=== PATIENT | male | born 1930 | race African-American/Black ===

== ENCOUNTER 2019-09-28 14:45 | Emergency (ER) | payer MEDICARE, OTHER ==
[~2019-09-28] VITALS: Ht 177.8 cm; Wt 82.0 kg
[2019-09-28 17:33] LABS: BASOPHILS % 0.5 % (0.0-2.0); EOSINOPHILS % 0.5 % (0.0-5.0); HEMATOCRIT. 35.8 % (42.0-52.0); HEMOGLOBIN. 11.6 g/dL (14.0-18.0); LYMPHOCYTES % 17.5 % (20.0-50.0); MEAN CORPUSCULAR HEMOGLOBIN 29.9 pg (28.0-32.0); MEAN CORPUSCULAR VOLUME 92.7 fL (80.0-94.0); MEAN PLATELET VOLUME 10.3 fl (7.4-10.4); MONOCYTES % 10.7 % (2.0-8.0); NEUTROPHILS % 70.8 % (40.0-76.0); PLATELET 193 x1000/uL (130-400); RED BLOOD CELL COUNT 3.86 mill/uL (4.7-6.1); RED CELL DISTRIBUTION WIDTH 15.4 % (11.6-14.6)
[2019-09-28 17:37] LABS: PROTHROMBIN TIME 10.4 sec (9.6-11.0)
[2019-09-28 17:38] LABS: CHLORIDE 109 mEq/L (98-107)
[2019-09-28 17:42] LABS: ETHANOL BLOOD < 10 mg/dL
[2019-09-28 18:27] VITALS: BP 200/99
[2019-09-28] MEDS ORDERED: MORPHINE SULFATE 2 MG/ML CPJ (NOT FOR IM USE) IV PRN (18:45)
[2019-09-28] MEDS ORDERED: NICARDIPINE 100 MG in SODIUM CHLORIDE 0.9% 60 ML IV PRN (18:45)
[2019-09-28] MEDS ORDERED: DEXT 5%/LACTATED RINGERS 1,000 ML IV SCH (18:45)
[2019-09-28] MEDS ORDERED: LEVETIRACETAM 500MG PREMIX 100 ML IV ONE (19:30)
[2019-09-28 19:52] LABS: CLARITY URINE CLEAR (CLEAR); COLOR URINE YELLOW (YELLOW); KETONES URINE NEGATIVE (NEGATIVE); LEUKOCYTE ESTERASE URINE NEGATIVE (NEGATIVE); NITRITE URINE NEGATIVE (NEGATIVE); OCCULT BLOOD URINE NEGATIVE (NEGATIVE); PH URINE 7.5 (4.5-8.0); PROTEIN URINE NEGATIVE (NEGATIVE); UROBILINOGEN URINE 0.2 E.U./dL (0.2-1.0)
[2019-09-28] MEDS ORDERED: TRANEXAMIC ACID 1,000 MG/10 ML IV ONE (20:00)
[2019-09-28] MEDS ORDERED: TRANEXAMIC ACID 1,000 MG in SODIUM CHLORIDE 0.9% 100 ML IV ONE (20:00)
[2019-09-28 20:25] LABS: METHADONE URINE SCREEN NEGATIVE (NEGATIVE)
[2019-09-28 20:26] LABS: *AMPHETAMINES SCREEN URINE NEGATIVE (NEGATIVE); *BARBITURATES SCREEN URINE NEGATIVE (NEGATIVE); *BENZODIAZEPINES SCREEN URINE NEGATIVE (NEGATIVE); *COCAINE SCREEN URINE NEGATIVE (NEGATIVE); OPIATES URINE SCREEN NEGATIVE (NEGATIVE); PHENCYCLIDINE URINE SCREEN NEGATIVE (NEGATIVE)
[2019-09-28 20:29] LABS: CANNABINOID URINE SCREEN NEGATIVE (NEGATIVE)
[2019-09-29] MEDS ORDERED: LEVETIRACETAM 500MG PREMIX 100 ML IV SCH (09:00)
== END 2019-09-28 20:50 | disposition short-term general hospital (02) ==
LOC: ER 14:45
DX: S82.841A Displaced bimalleolar fracture of right lower leg, initial encounter for closed fracture (principal); I62.00 Nontraumatic subdural hemorrhage, unspecified; V49.49XA Driver injured in collision with other motor vehicles in traffic accident, initial encounter; Y93.89 Activity, other specified; Y92.89 Other specified places as the place of occurrence of the external cause; Y99.8 Other external cause status; E11.9 Type 2 diabetes mellitus without complications; I10 Essential (primary) hypertension
CPT/HCPCS: 36415; 70450; 71045; 72192; 73560; 73610; 80053; 80305; 80320; 81003; 83690; 84484; 85025; 85610; 93005; 96365; 96367; 96375; 99285; J1953; J7050; Z7610; G0480

== ENCOUNTER 2020-05-20 19:57 | Inpatient (IN) | payer MEDICARE, MEDICAID ==
[~2020-05-20] VITALS: Ht 182 cm; Wt 84.9 kg
[2020-05-20] MEDS ORDERED: SODIUM CHLORIDE 0.9% 1,000 ML IV ONE (21:01)
[2020-05-20] MEDS ORDERED: TETANUS, DIPHTHERIA, PERTUSSIS VAC/PF 0.5ML (>7YR OLD) IM ONE (21:15)
[2020-05-20] MEDS ORDERED: ACETAMINOPHEN 325MG TABLET PO ONE (21:15)
[2020-05-20] MEDS ORDERED: LEVETIRACETAM 500MG PREMIX 100 ML IV ONE (22:00)
[2020-05-20 22:05] LABS: BASOPHILS % 0.1 % (0.0-2.0); EOSINOPHILS % 0.3 % (0.0-5.0); HEMATOCRIT. 34.1 % (42.0-52.0); HEMOGLOBIN. 11.2 g/dL (14.0-18.0); LYMPHOCYTES % 12.1 % (20.0-50.0); MEAN CORPUSCULAR HEMOGLOBIN 29.8 pg (28.0-32.0); MEAN PLATELET VOLUME 10.1 fl (7.4-10.4); MONOCYTES % 11.5 % (2.0-8.0); PLATELET 109 x1000/uL (130-400); RED BLOOD CELL COUNT 3.75 mill/uL (4.7-6.1); RED CELL DISTRIBUTION WIDTH 14.8 % (11.6-14.6)
[2020-05-20 22:14] LABS: CHLORIDE 112 mEq/L (98-107)
[2020-05-20 22:15] LABS: PROTHROMBIN TIME 10.9 sec (9.6-11.0)
[2020-05-20] MEDS ORDERED: NICARDIPINE 50 MG in SODIUM CHLORIDE 0.9% 230 ML IV STA (22:18)
[2020-05-20 22:21] LABS: ETHANOL BLOOD < 10 mg/dL
[2020-05-20] MEDS ORDERED: NICARDIPINE 100 MG in SODIUM CHLORIDE 0.9% 60 ML IV PRN (22:30)
[2020-05-20] MEDS ORDERED: LIDOCAINE 1%/EPI 1:100,000 10 ML VIAL IJ ONE (23:00)
[2020-05-20] MEDS ORDERED: BACITRACIN ZINC OINT UDPKT TOP ONE (23:00)
[2020-05-20] MEDS: DEXT 5%/LACTATED RINGERS 1,000 ML IV SCH (23:08)
[2020-05-21] VITALS (81 sets, daily range): BP systolic 39–157; BP diastolic 24–109
[2020-05-21] MEDS ORDERED: DOCUSATE SODIUM 100MG CAPSULE PO PRN (03:15)
[2020-05-21] MEDS: DEXT 5%/LACTATED RINGERS 1,000 ML IV SCH ×2 (03:48→03:49)
[2020-05-21] MEDS ORDERED: MVI, ADULT NO.1 10 ML, FOLIC ACID 1 MG, THIAMINE HCL 100 MG in SODIUM CHLORIDE 0.9% 1,0... IV SCH ×4 (04:00)
[2020-05-21 05:44] LABS: BASOPHILS % 0.1 % (0.0-2.0); EOSINOPHILS % 1.3 % (0.0-5.0); HEMATOCRIT. 31.8 % (42.0-52.0); HEMOGLOBIN. 10.5 g/dL (14.0-18.0); LYMPHOCYTES % 18.5 % (20.0-50.0); MEAN CORPUSCULAR VOLUME 91.3 fL (80.0-94.0); MEAN PLATELET VOLUME 9.5 fl (7.4-10.4); NEUTROPHILS % 67.1 % (40.0-76.0); PLATELET 104 x1000/uL (130-400); RED BLOOD CELL COUNT 3.48 mill/uL (4.7-6.1); RED CELL DISTRIBUTION WIDTH 14.7 % (11.6-14.6)
[2020-05-21 06:15] LABS: CHLORIDE 114 mEq/L (98-107)
[2020-05-21] MEDS ORDERED: LEVETIRACETAM 500MG PREMIX 100 ML IV SCH (09:00)
[2020-05-21] MEDS: FAMOTIDINE 20MG/2ML VIAL IV SCH (09:14)
[2020-05-21] MEDS: LEVETIRACETAM 500MG PREMIX 100 ML IV SCH ×2 (11:01→20:36)
[2020-05-21] MEDS ORDERED: BISACODYL 10MG SUPP PR PRN (13:15)
[2020-05-21] MEDS ORDERED: DEXTROSE 50% WATER 50ML SYRINGE IV PRN (13:15)
[2020-05-21] MEDS ORDERED: IPRATROPIUM/ALBUTEROL 0.5-3(2.5)MG/3ML NEB HHN PRN (13:15)
[2020-05-21] MEDS: AMLODIPINE 5MG TABLET PO SCH (14:33)
[2020-05-21 15:40] LABS: CLARITY URINE CLEAR (CLEAR); COLOR URINE YELLOW (YELLOW); KETONES URINE TRACE (NEGATIVE); LEUKOCYTE ESTERASE URINE NEGATIVE (NEGATIVE); NITRITE URINE NEGATIVE (NEGATIVE); OCCULT BLOOD URINE NEGATIVE (NEGATIVE); PH URINE 5.5 (4.5-8.0); PROTEIN URINE NEGATIVE (NEGATIVE); SPECIFIC GRAVITY URINE 1.019 (1.005-1.030); UROBILINOGEN URINE 0.2 E.U./dL (0.2-1.0)
[2020-05-21 15:57] LABS: *AMPHETAMINES SCREEN URINE NEGATIVE (NEGATIVE); *BARBITURATES SCREEN URINE NEGATIVE (NEGATIVE)
[2020-05-21 15:58] LABS: *BENZODIAZEPINES SCREEN URINE NEGATIVE (NEGATIVE); *COCAINE SCREEN URINE NEGATIVE (NEGATIVE); CANNABINOID URINE SCREEN NEGATIVE (NEGATIVE); METHADONE URINE SCREEN NEGATIVE (NEGATIVE); OPIATES URINE SCREEN NEGATIVE (NEGATIVE); PHENCYCLIDINE URINE SCREEN NEGATIVE (NEGATIVE)
[2020-05-21] MEDS: BLOOD SUGAR DIAGNOSTIC STRIP TEST SCH ×2 (16:30→20:38)
[2020-05-21] MEDS: INSULIN LISPRO 100 UNITS/ML SUBCUT SCH ×2 (18:38→20:38)
[2020-05-21] MEDS: MORPHINE SULFATE 2 MG/ML CPJ (NOT FOR IM USE) IV PRN (23:44)
[2020-05-22] VITALS (96 sets, daily range): BP systolic 95–162; BP diastolic 31–101
[2020-05-22] MEDS: NICARDIPINE 100 MG in SODIUM CHLORIDE 0.9% 60 ML IV PRN ×2 (01:09→20:06)
[2020-05-22] MEDS: BLOOD SUGAR DIAGNOSTIC STRIP TEST SCH ×4 (06:02→20:31)
[2020-05-22] MEDS: MORPHINE SULFATE 2 MG/ML CPJ (NOT FOR IM USE) IV PRN (06:06)
[2020-05-22] MEDS: INSULIN LISPRO 100 UNITS/ML SUBCUT SCH ×4 (06:07→20:31)
[2020-05-22] MEDS ORDERED: LORAZEPAM 2MG/ML CPJ IV PRN (06:30)
[2020-05-22 06:33] LABS: T4 FREE 1.13 ng/dL (0.76-1.46)
[2020-05-22] MEDS: DEXT 5%/LACTATED RINGERS 1,000 ML IV SCH (07:58)
[2020-05-22] MEDS: FAMOTIDINE 20MG/2ML VIAL IV SCH (08:28)
[2020-05-22] MEDS: AMLODIPINE 5MG TABLET PO SCH (08:29)
[2020-05-22] MEDS: LEVETIRACETAM 500MG PREMIX 100 ML IV SCH ×2 (08:29→22:15)
[2020-05-22] MEDS ORDERED: GADOBENATE DIMEGLUMINE 529 MG/ML 10ML IV ONE (09:50)
[2020-05-22 12:22] LABS: BASOPHILS % 0.3 % (0.0-2.0); EOSINOPHILS % 0.2 % (0.0-5.0); HEMATOCRIT. 32.3 % (42.0-52.0); HEMOGLOBIN. 10.4 g/dL (14.0-18.0); LYMPHOCYTES % 8.5 % (20.0-50.0); MEAN CORPUSCULAR HEMOGLOBIN 29.8 pg (28.0-32.0); MEAN CORPUSCULAR VOLUME 92.2 fL (80.0-94.0); MEAN PLATELET VOLUME 9.6 fl (7.4-10.4); MONOCYTES % 7.4 % (2.0-8.0); NEUTROPHILS % 83.6 % (40.0-76.0); PLATELET 76 x1000/uL (130-400); RED CELL DISTRIBUTION WIDTH 14.9 % (11.6-14.6)
[2020-05-22 12:28] LABS: CHLORIDE 116 mEq/L (98-107)
[2020-05-22] MEDS ORDERED: LIDOCAINE HCL 1% 20ML VIAL (Pyxis) INJ ONE (13:17)
[2020-05-22] MEDS ORDERED: IOHEXOL-300 100 ML BOTTLE ONE (13:17)
[2020-05-22] MEDS ORDERED: SODIUM BICARBONATE 4% (2.4MEQ) 5ML VIAL IV ONE (13:17)
[2020-05-22] MEDS ORDERED: CEFAZOLIN 1000MG PREMIX 50 ML IV SCH (14:00)
[2020-05-22] MEDS ORDERED: CEFAZOLIN 1000MG PREMIX 50 ML IV ONE (14:10)
[2020-05-23] VITALS (96 sets, daily range): BP systolic 94–149; BP diastolic 28–88
[2020-05-23] MEDS: DEXT 5%/LACTATED RINGERS 1,000 ML IV SCH ×2 (00:09→17:04)
[2020-05-23 05:43] LABS: BASOPHILS % 0.2 % (0.0-2.0); EOSINOPHILS % 0.7 % (0.0-5.0); HEMATOCRIT. 32.2 % (42.0-52.0); HEMOGLOBIN. 10.7 g/dL (14.0-18.0); LYMPHOCYTES % 15.5 % (20.0-50.0); MEAN CORPUSCULAR VOLUME 89.9 fL (80.0-94.0); MEAN PLATELET VOLUME 9.5 fl (7.4-10.4); MONOCYTES % 10.6 % (2.0-8.0); PLATELET 109 x1000/uL (130-400); RED BLOOD CELL COUNT 3.58 mill/uL (4.7-6.1); RED CELL DISTRIBUTION WIDTH 14.7 % (11.6-14.6)
[2020-05-23 05:47] LABS: CHLORIDE 116 mEq/L (98-107)
[2020-05-23] MEDS: BLOOD SUGAR DIAGNOSTIC STRIP TEST SCH ×4 (06:20→21:00)
[2020-05-23] MEDS: INSULIN LISPRO 100 UNITS/ML SUBCUT SCH ×4 (06:20→21:00)
[2020-05-23] MEDS ORDERED: BACITRACIN 15GM TUBE TOP ONE (06:23)
[2020-05-23] MEDS ORDERED: BACITRACIN 50,000 UNITS/VIAL ONE (06:24)
[2020-05-23] MEDS ORDERED: THROMBIN (BOVINE) 5000 UNITS/VIAL TOP ONE (06:24)
[2020-05-23] MEDS ORDERED: FENTANYL CITRATE/PF 50MCG/ML 2ML VIAL ONE (07:02)
[2020-05-23] MEDS ORDERED: PROPOFOL 200MG/20ML VIAL IV ONE (07:02)
[2020-05-23] MEDS ORDERED: ROCURONIUM BROMIDE 10MG/ML VIAL 5ML IV ONE (07:02)
[2020-05-23] MEDS ORDERED: PHENYLEPHRINE HCL 10 MG/ML 1ML (IV VIAL) IV ONE (07:05)
[2020-05-23] MEDS ORDERED: CEFAZOLIN SODIUM 1000MG/VIAL ONE (07:05)
[2020-05-23] MEDS ORDERED: LABETALOL HCL 5MG/ML VIAL 20ML IV ONE (07:05)
[2020-05-23] MEDS ORDERED: SODIUM CHLORIDE 0.9% 10ML VIAL ONE ×2 (07:06→07:11)
[2020-05-23] MEDS ORDERED: DEXAMETHASONE 4MG/ML 1ML VIAL ONE (07:06)
[2020-05-23] MEDS ORDERED: ACETAMINOPHEN 500MG TABLET ONE (07:11)
[2020-05-23] MEDS ORDERED: PROPOFOL 10MG/ML 100ML 0 ML IV ONE (07:13)
[2020-05-23] MEDS ORDERED: ONDANSETRON HCL 4MG/2ML INJ ONE (07:19)
[2020-05-23] MEDS ORDERED: STERILE WATER FOR INJECTION 10ML VIAL ONE (07:21)
[2020-05-23] MEDS ORDERED: LIDOCAINE HCL/PF 1% 10 MG/ML 5ML VIAL ONE (07:32)
[2020-05-23] MEDS ORDERED: PHENYLEPHRINE 50 MG in DEXT 5% WATER 245 ML IV SCH (08:00)
[2020-05-23] MEDS ORDERED: MANNITOL 20% 0 ML IV ONE (08:10)
[2020-05-23] MEDS ORDERED: NEOSTIGMINE METHYLSULFATE 1MG/ML 10 ML VIAL ONE (08:50)
[2020-05-23] MEDS ORDERED: GLYCOPYRROLATE 0.2 MG/ML 2ML VIAL ONE (08:50)
[2020-05-23 08:51] LABS: BG BASE EXCESS -3.7 mmol/L (-2.0-2.0); BG CARBOXYHEMOGLOBIN 0.2 % (0.5-1.5); BG DEOXYHEMOGLOBIN 0.9 % (0.0-5.0); BG FRACTION INSPIRED OXYGEN 100%; BG HCO3 ACT 19.9 mmol/L (22.0-26.0); BG METHEMOGLOBIN 0.5 % (0.0-1.5); BG OXYGEN SATURATION 99.1 % (92.0-98.5); BG OXYHEMOGLOBIN 98.4 % (94.0-97.0); BG PCO2 30.6 mmHg (35.0-45.0); BG PO2 332.7 mmHg (75.0-100.0); BG SAMPLE SITE RIGHT RADIAL; BG TOTAL HEMOGLOBIN 9.7 g/dL (12.0-18.0); BG VENT MODE VENT - AC
[2020-05-23] MEDS: FAMOTIDINE 20MG/2ML VIAL IV SCH (11:05)
[2020-05-23] MEDS: AMLODIPINE 5MG TABLET PO SCH (11:05)
[2020-05-23] MEDS: LEVETIRACETAM 500MG PREMIX 100 ML IV SCH ×2 (11:05→21:17)
[2020-05-23] MEDS: MORPHINE SULFATE 2 MG/ML CPJ (NOT FOR IM USE) IV PRN ×4 (11:59→22:05)
[2020-05-23] MEDS: CEFAZOLIN 1000MG PREMIX 50 ML IV SCH ×2 (13:10→22:33)
[2020-05-23] MEDS ORDERED: CEFAZOLIN SODIUM 1000MG/VIAL IV SCH (14:00)
[2020-05-23] MEDS: NICARDIPINE 100 MG in SODIUM CHLORIDE 0.9% 60 ML IV PRN (17:53)
[2020-05-23] MEDS: ONDANSETRON HCL 4MG/2ML INJ IV PRN (20:09)
[2020-05-24] VITALS (93 sets, daily range): BP systolic 91–142; BP diastolic 33–95
[2020-05-24] MEDS: MORPHINE SULFATE 2 MG/ML CPJ (NOT FOR IM USE) IV PRN ×3 (00:10→09:44)
[2020-05-24] MEDS: NICARDIPINE 100 MG in SODIUM CHLORIDE 0.9% 60 ML IV PRN ×3 (00:54→19:23)
[2020-05-24] MEDS: CEFAZOLIN 1000MG PREMIX 50 ML IV SCH ×2 (05:10→15:12)
[2020-05-24] MEDS ORDERED: MORPHINE SULFATE 2 MG/ML CPJ (NOT FOR IM USE) IV NR (05:45)
[2020-05-24] MEDS: BLOOD SUGAR DIAGNOSTIC STRIP TEST SCH ×4 (06:35→21:30)
[2020-05-24] MEDS: INSULIN LISPRO 100 UNITS/ML SUBCUT SCH ×4 (06:40→21:31)
[2020-05-24] MEDS: AMLODIPINE 5MG TABLET PO SCH (08:44)
[2020-05-24] MEDS: FAMOTIDINE 20MG/2ML VIAL IV SCH (08:44)
[2020-05-24] MEDS: LEVETIRACETAM 500MG PREMIX 100 ML IV SCH ×2 (08:44→21:30)
[2020-05-24 10:03] LABS: HEMATOCRIT. 29.9 % (42.0-52.0); HEMOGLOBIN. 9.7 g/dL (14.0-18.0); MEAN CORPUSCULAR HEMOGLOBIN 29.6 pg (28.0-32.0); MEAN PLATELET VOLUME 9.7 fl (7.4-10.4); PLATELET 114 x1000/uL (130-400); RED BLOOD CELL COUNT 3.28 mill/uL (4.7-6.1); RED CELL DISTRIBUTION WIDTH 14.9 % (11.6-14.6)
[2020-05-24 10:42] LABS: PLATELET ESTIMATE DECREASED
[2020-05-24] MEDS: DEXT 5%/LACTATED RINGERS 1,000 ML IV SCH (10:52)
[2020-05-25] VITALS (95 sets, daily range): BP systolic 83–166; BP diastolic 32–111
[2020-05-25] MEDS: MORPHINE SULFATE 2 MG/ML CPJ (NOT FOR IM USE) IV PRN ×6 (00:49→13:35)
[2020-05-25] MEDS: DEXT 5%/LACTATED RINGERS 1,000 ML IV SCH ×2 (03:02→20:29)
[2020-05-25] MEDS: NICARDIPINE 100 MG in SODIUM CHLORIDE 0.9% 60 ML IV PRN ×2 (04:23→11:53)
[2020-05-25] MEDS ORDERED: MORPHINE SULFATE 2 MG/ML CPJ (NOT FOR IM USE) IV NR (05:00)
[2020-05-25] MEDS: BLOOD SUGAR DIAGNOSTIC STRIP TEST SCH ×4 (06:44→20:37)
[2020-05-25] MEDS: INSULIN LISPRO 100 UNITS/ML SUBCUT SCH ×4 (06:44→20:37)
[2020-05-25] MEDS ORDERED: MORPHINE SULFATE 2 MG/ML CPJ (NOT FOR IM USE) IV SCH (07:00)
[2020-05-25] MEDS: FAMOTIDINE 20MG/2ML VIAL IV SCH (08:32)
[2020-05-25] MEDS: LEVETIRACETAM 500MG PREMIX 100 ML IV SCH ×2 (08:32→20:30)
[2020-05-25 08:59] LABS: HEMATOCRIT. 27.9 % (42.0-52.0); HEMOGLOBIN. 9.2 g/dL (14.0-18.0); MEAN CORPUSCULAR HEMOGLOBIN 30.2 pg (28.0-32.0); MEAN CORPUSCULAR VOLUME 91.3 fL (80.0-94.0); MEAN PLATELET VOLUME 9.7 fl (7.4-10.4); PLATELET 112 x1000/uL (130-400); RED BLOOD CELL COUNT 3.05 mill/uL (4.7-6.1); RED CELL DISTRIBUTION WIDTH 15.3 % (11.6-14.6)
[2020-05-25] MEDS ORDERED: MORPHINE SULFATE 2 MG/ML CPJ (NOT FOR IM USE) IV ONE (09:00)
[2020-05-25] MEDS: AMLODIPINE 5MG TABLET PO SCH (09:00)
[2020-05-25 10:03] LABS: PLATELET ESTIMATE DECREASED
[2020-05-26] VITALS (87 sets, daily range): BP systolic 94–161; BP diastolic 47–93
[2020-05-26] MEDS: MORPHINE SULFATE 4 MG/ML CPJ (NOT FOR IM USE) IV PRN ×7 (01:19→20:47)
[2020-05-26] MEDS: BLOOD SUGAR DIAGNOSTIC STRIP TEST SCH ×4 (06:30→21:00)
[2020-05-26] MEDS: INSULIN LISPRO 100 UNITS/ML SUBCUT SCH ×4 (06:52→21:00)
[2020-05-26] MEDS: FAMOTIDINE 20MG/2ML VIAL IV SCH (08:26)
[2020-05-26] MEDS: LEVETIRACETAM 500MG PREMIX 100 ML IV SCH ×2 (08:26→20:48)
[2020-05-26] MEDS: AMLODIPINE 5MG TABLET PO SCH (09:00)
[2020-05-26] MEDS: NICARDIPINE 100 MG in SODIUM CHLORIDE 0.9% 60 ML IV PRN (11:42)
[2020-05-26 14:31] LABS: BG BASE EXCESS -2.8 mmol/L (-2.0-2.0); BG CARBOXYHEMOGLOBIN 0.1 % (0.5-1.5); BG DEOXYHEMOGLOBIN 7.7 % (0.0-5.0); BG FRACTION INSPIRED OXYGEN 36; BG HCO3 ACT 22.5 mmol/L (22.0-26.0); BG METHEMOGLOBIN 0.3 % (0.0-1.5); BG OXYGEN SATURATION 92.3 % (92.0-98.5); BG OXYHEMOGLOBIN 91.9 % (94.0-97.0); BG PCO2 41.1 mmHg (35.0-45.0); BG PH 7.357 (7.350-7.450); BG PO2 63.7 mmHg (75.0-100.0); BG SAMPLE SITE RIGHT RADIAL; BG TOTAL HEMOGLOBIN 10.1 g/dL (12.0-18.0); BG VENT MODE NASAL CANNULA
[2020-05-26] MEDS: DEXT 5%/LACTATED RINGERS 1,000 ML IV SCH (15:36)
[2020-05-26] MEDS: NITROGLYCERIN OINT 1GM/INCH UDPKT TD SCH ×2 (15:38→23:31)
[2020-05-26] MEDS ORDERED: LORAZEPAM 2MG/ML CPJ IV PRN (20:00)
[2020-05-26] MEDS: THIAMINE HCL 100MG TABLET PO SCH (20:00)
[2020-05-26] MEDS: FOLIC ACID 1MG TABLET PO SCH (20:00)
[2020-05-27] VITALS (82 sets, daily range): BP systolic 98–153; BP diastolic 54–100
[2020-05-27] MEDS: MORPHINE SULFATE 4 MG/ML CPJ (NOT FOR IM USE) IV PRN ×2 (03:37→06:26)
[2020-05-27 05:46] LABS: BASOPHILS % 0.2 % (0.0-2.0); EOSINOPHILS % 1.3 % (0.0-5.0); HEMATOCRIT. 27.1 % (42.0-52.0); LYMPHOCYTES % 8.7 % (20.0-50.0); MEAN CORPUSCULAR HEMOGLOBIN 30.3 pg (28.0-32.0); MEAN CORPUSCULAR VOLUME 91.6 fL (80.0-94.0); MEAN PLATELET VOLUME 9.6 fl (7.4-10.4); MONOCYTES % 13.3 % (2.0-8.0); NEUTROPHILS % 76.5 % (40.0-76.0); PLATELET 96 x1000/uL (130-400); RED BLOOD CELL COUNT 2.96 mill/uL (4.7-6.1); RED CELL DISTRIBUTION WIDTH 15.2 % (11.6-14.6)
[2020-05-27 05:53] LABS: CHLORIDE 119 mEq/L (98-107)
[2020-05-27] MEDS: BLOOD SUGAR DIAGNOSTIC STRIP TEST SCH ×4 (06:27→20:51)
[2020-05-27] MEDS: INSULIN LISPRO 100 UNITS/ML SUBCUT SCH ×4 (06:27→20:51)
[2020-05-27] MEDS: NITROGLYCERIN OINT 1GM/INCH UDPKT TD SCH ×3 (06:27→21:38)
[2020-05-27] MEDS: THIAMINE HCL 100MG TABLET PO SCH (08:23)
[2020-05-27] MEDS: FAMOTIDINE 20MG/2ML VIAL IV SCH (08:23)
[2020-05-27] MEDS: HYDRALAZINE HCL 25MG TABLET PO PRN (08:24)
[2020-05-27] MEDS: AMLODIPINE 5MG TABLET PO SCH (08:24)
[2020-05-27] MEDS: FOLIC ACID 1MG TABLET PO SCH (08:24)
[2020-05-27] MEDS: DEXT 5%/LACTATED RINGERS 1,000 ML IV SCH (08:25)
[2020-05-27] MEDS: LEVETIRACETAM 500MG PREMIX 100 ML IV SCH ×2 (08:25→20:31)
[2020-05-27] MEDS: NITROPRUSSIDE 50 MG in SODIUM CHLORIDE 0.9% 248 ML IV PRN (14:11)
[2020-05-27] MEDS ORDERED: CARV3.1242 MT (15:08)
[2020-05-27] MEDS ORDERED: FURO-152 MT (15:09)
[2020-05-27] MEDS ORDERED: GLIM1TAB MT (15:11)
[2020-05-27] MEDS ORDERED: AMLO-78 MT (15:13)
[2020-05-27] MEDS ORDERED: QUET25TA MT (15:15)
[2020-05-27] MEDS: ACETAMINOPHEN 325MG TABLET PO PRN (20:17)
[2020-05-28] VITALS (98 sets, daily range): BP systolic 104–169; BP diastolic 23–125
[2020-05-28] MEDS: DEXT 5%/LACTATED RINGERS 1,000 ML IV SCH ×2 (01:35→15:03)
[2020-05-28] MEDS: MORPHINE SULFATE 4 MG/ML CPJ (NOT FOR IM USE) IV PRN ×4 (02:26→16:22)
[2020-05-28] MEDS: NITROPRUSSIDE 50 MG in SODIUM CHLORIDE 0.9% 248 ML IV PRN ×4 (02:34→21:29)
[2020-05-28] MEDS: NITROGLYCERIN OINT 1GM/INCH UDPKT TD SCH ×4 (05:46→21:54)
[2020-05-28] MEDS: BLOOD SUGAR DIAGNOSTIC STRIP TEST SCH ×4 (05:47→20:31)
[2020-05-28] MEDS: INSULIN LISPRO 100 UNITS/ML SUBCUT SCH ×4 (07:00→20:39)
[2020-05-28 09:21] LABS: BASOPHILS % 0.2 % (0.0-2.0); EOSINOPHILS % 0.4 % (0.0-5.0); HEMATOCRIT. 27.9 % (42.0-52.0); LYMPHOCYTES % 10.3 % (20.0-50.0); MEAN CORPUSCULAR VOLUME 92.6 fL (80.0-94.0); MEAN PLATELET VOLUME 9.1 fl (7.4-10.4); MONOCYTES % 14.8 % (2.0-8.0); NEUTROPHILS % 74.3 % (40.0-76.0); PLATELET 105 x1000/uL (130-400); RED BLOOD CELL COUNT 3.01 mill/uL (4.7-6.1); RED CELL DISTRIBUTION WIDTH 15.4 % (11.6-14.6)
[2020-05-28 09:27] LABS: CHLORIDE 119 mEq/L (98-107)
[2020-05-28] MEDS: FAMOTIDINE 20MG/2ML VIAL IV SCH (09:34)
[2020-05-28] MEDS: THIAMINE HCL 100MG TABLET PO SCH (09:36)
[2020-05-28] MEDS: AMLODIPINE 5MG TABLET PO SCH (09:36)
[2020-05-28] MEDS: FOLIC ACID 1MG TABLET PO SCH (09:36)
[2020-05-28] MEDS: HYDRALAZINE HCL 25MG TABLET PO PRN ×2 (09:36→18:06)
[2020-05-28] MEDS: LEVETIRACETAM 500MG PREMIX 100 ML IV SCH ×2 (09:39→20:22)
[2020-05-28] MEDS: LABETALOL 5MG/ML SYR 20 MG/4 ML SYRINGE IV PRN ×3 (10:56→18:05)
[2020-05-28] MEDS: HALOPERIDOL LACTATE 5MG/ML VIAL IM PRN (12:44)
[2020-05-28] MEDS ORDERED: LIDOCAINE HCL 2% JELLY 5ML TOP NR (17:15)
[2020-05-28] MEDS: ENALAPRIL 1.25MG/ML VIAL 1ML IV PRN (18:05)
[2020-05-28] MEDS: HYDRALAZINE HCL 25MG TABLET PO SCH (20:54)
[2020-05-28] MEDS: DOCUSATE SODIUM SUGAR FREE 100MG/10ML UDC NG SCH (20:55)
[2020-05-28] MEDS: RISPERIDONE 1MG TABLET PO SCH (21:31)
[2020-05-29] VITALS (96 sets, daily range): BP systolic 101–167; BP diastolic 42–120
[2020-05-29] MEDS: MORPHINE SULFATE 4 MG/ML CPJ (NOT FOR IM USE) IV PRN (00:03)
[2020-05-29] MEDS: NITROPRUSSIDE 50 MG in SODIUM CHLORIDE 0.9% 248 ML IV PRN ×3 (01:42→09:23)
[2020-05-29] MEDS: HYDRALAZINE HCL 25MG TABLET PO SCH ×3 (02:49→14:29)
[2020-05-29 05:41] LABS: EOSINOPHILS % 0.4 % (0.0-5.0); HEMATOCRIT. 24.7 % (42.0-52.0); HEMOGLOBIN. 8.2 g/dL (14.0-18.0); LYMPHOCYTES % 8.4 % (20.0-50.0); MEAN CORPUSCULAR HEMOGLOBIN 30.2 pg (28.0-32.0); MEAN CORPUSCULAR VOLUME 91.4 fL (80.0-94.0); MONOCYTES % 12.7 % (2.0-8.0); NEUTROPHILS % 78.5 % (40.0-76.0); PLATELET 103 x1000/uL (130-400); RED CELL DISTRIBUTION WIDTH 15.2 % (11.6-14.6)
[2020-05-29 05:42] LABS: CHLORIDE 118 mEq/L (98-107)
[2020-05-29] MEDS: BLOOD SUGAR DIAGNOSTIC STRIP TEST SCH ×4 (05:51→21:29)
[2020-05-29] MEDS: INSULIN LISPRO 100 UNITS/ML SUBCUT SCH ×4 (05:56→21:31)
[2020-05-29] MEDS: NITROGLYCERIN OINT 1GM/INCH UDPKT TD SCH ×3 (05:57→16:57)
[2020-05-29] MEDS: LEVETIRACETAM 500MG PREMIX 100 ML IV SCH ×2 (09:18→21:11)
[2020-05-29] MEDS: DEXT 5%/LACTATED RINGERS 1,000 ML IV SCH (09:19)
[2020-05-29] MEDS: FOLIC ACID 1MG TABLET PO SCH (09:20)
[2020-05-29] MEDS: DOCUSATE SODIUM SUGAR FREE 100MG/10ML UDC NG SCH ×2 (09:20→16:57)
[2020-05-29] MEDS: FAMOTIDINE 20MG/2ML VIAL IV SCH (09:20)
[2020-05-29] MEDS: ENALAPRIL 1.25MG/ML VIAL 1ML IV PRN ×3 (09:20→16:58)
[2020-05-29] MEDS: HYDRALAZINE HCL 25MG TABLET PO PRN ×2 (09:21→14:30)
[2020-05-29] MEDS: RISPERIDONE 1MG TABLET PO SCH ×2 (09:21→21:11)
[2020-05-29] MEDS: THIAMINE HCL 100MG TABLET PO SCH (09:22)
[2020-05-29] MEDS: AMLODIPINE 5MG TABLET PO SCH ×2 (09:22→16:58)
[2020-05-29] MEDS: HALOPERIDOL LACTATE 5MG/ML VIAL IM PRN (09:26)
[2020-05-29] MEDS: LABETALOL 5MG/ML SYR 20 MG/4 ML SYRINGE IV PRN (12:30)
[2020-05-29] MEDS ORDERED: HYDROCODONE/ACETAMINOPHEN 5/325MG TABLET PO PRN (16:00)
[2020-05-29] MEDS ORDERED: MORPHINE SULFATE 4 MG/ML CPJ (NOT FOR IM USE) IV PRN (17:15)
[2020-05-29] MEDS: HYDRALAZINE HCL 50MG TABLET PO SCH (17:20)
[2020-05-29] MEDS ORDERED: HYDRALAZINE HCL 25MG TABLET PO PRN (21:15)
[2020-05-30] VITALS (34 sets, daily range): BP systolic 106–148; BP diastolic 52–77
[2020-05-30] MEDS: HYDRALAZINE HCL 50MG TABLET PO SCH ×2 (00:30→05:50)
[2020-05-30] MEDS: NITROGLYCERIN OINT 1GM/INCH UDPKT TD SCH ×5 (00:30→21:26)
[2020-05-30] MEDS: LABETALOL 5MG/ML SYR 20 MG/4 ML SYRINGE IV PRN (01:48)
[2020-05-30] MEDS: NITROPRUSSIDE 50 MG in SODIUM CHLORIDE 0.9% 248 ML IV PRN (03:41)
[2020-05-30] MEDS: DEXT 5%/LACTATED RINGERS 1,000 ML IV SCH (03:43)
[2020-05-30 05:28] LABS: BASOPHILS % 0.1 % (0.0-2.0); EOSINOPHILS % 1.1 % (0.0-5.0); HEMATOCRIT. 25.3 % (42.0-52.0); HEMOGLOBIN. 8.4 g/dL (14.0-18.0); LYMPHOCYTES % 9.2 % (20.0-50.0); MEAN CORPUSCULAR HEMOGLOBIN 30.1 pg (28.0-32.0); MEAN CORPUSCULAR VOLUME 90.9 fL (80.0-94.0); MEAN PLATELET VOLUME 9.4 fl (7.4-10.4); MONOCYTES % 13.8 % (2.0-8.0); NEUTROPHILS % 75.8 % (40.0-76.0); PLATELET 106 x1000/uL (130-400); RED BLOOD CELL COUNT 2.78 mill/uL (4.7-6.1); RED CELL DISTRIBUTION WIDTH 15.4 % (11.6-14.6)
[2020-05-30] MEDS: INSULIN LISPRO 100 UNITS/ML SUBCUT SCH ×4 (06:23→21:29)
[2020-05-30] MEDS: BLOOD SUGAR DIAGNOSTIC STRIP TEST SCH ×4 (06:23→20:19)
[2020-05-30] MEDS: LEVETIRACETAM 500MG PREMIX 100 ML IV SCH ×2 (09:00→20:07)
[2020-05-30] MEDS ORDERED: METOPROLOL TARTRATE 50MG TABLET PO NR (10:45)
[2020-05-30] MEDS: DOCUSATE SODIUM SUGAR FREE 100MG/10ML UDC NG SCH ×2 (11:19→19:08)
[2020-05-30] MEDS: FOLIC ACID 1MG TABLET PO SCH (11:27)
[2020-05-30] MEDS: ENALAPRIL 1.25MG/ML VIAL 1ML IV PRN (11:27)
[2020-05-30] MEDS: FAMOTIDINE 20MG/2ML VIAL IV SCH (11:29)
[2020-05-30] MEDS: HALOPERIDOL LACTATE 5MG/ML VIAL IM PRN (11:29)
[2020-05-30] MEDS: AMLODIPINE 5MG TABLET PO SCH ×2 (11:30→19:02)
[2020-05-30] MEDS: THIAMINE HCL 100MG TABLET PO SCH (11:32)
[2020-05-30] MEDS: RISPERIDONE 1MG TABLET PO SCH ×2 (11:32→20:07)
[2020-05-30] MEDS: HYDRALAZINE HCL 100MG TABLET PO SCH ×2 (12:00→19:02)
[2020-05-30] MEDS: METOPROLOL TARTRATE 50MG TABLET PO SCH (20:08)
[2020-05-31] VITALS (48 sets, daily range): BP systolic 87–169; BP diastolic 41–90
[2020-05-31] MEDS: HYDRALAZINE HCL 100MG TABLET PO SCH ×4 (00:12→18:00)
[2020-05-31] MEDS: NITROGLYCERIN OINT 1GM/INCH UDPKT TD SCH ×4 (03:49→21:43)
[2020-05-31] MEDS: BLOOD SUGAR DIAGNOSTIC STRIP TEST SCH ×4 (05:34→21:33)
[2020-05-31 06:00] LABS: HEMATOCRIT 26.3 % (42.0-52.0); HEMOGLOBIN 8.8 g/dL (14.0-18.0); MEAN CORPUSCULAR HEMOGLOBIN 30.3 pg (28.0-32.0); RED BLOOD CELL COUNT 2.89 mill/uL (4.7-6.1); RED CELL DISTRIBUTION WIDTH 15.3 % (11.6-14.6)
[2020-05-31 06:06] LABS: CHLORIDE 118 mEq/L (98-107)
[2020-05-31] MEDS: INSULIN LISPRO 100 UNITS/ML SUBCUT SCH ×4 (06:07→21:33)
[2020-05-31 10:48] LABS: PLATELET 105 x1000/uL (130-400)
[2020-05-31] MEDS: LEVETIRACETAM 500MG PREMIX 100 ML IV SCH ×2 (11:01→21:00)
[2020-05-31] MEDS: ACETAMINOPHEN 325MG TABLET PO PRN (11:02)
[2020-05-31] MEDS: AMLODIPINE 5MG TABLET PO SCH ×2 (11:09→17:00)
[2020-05-31] MEDS: FOLIC ACID 1MG TABLET PO SCH (11:09)
[2020-05-31] MEDS: CLONIDINE 0.1MG TABLET PO PRN (11:10)
[2020-05-31] MEDS: RISPERIDONE 1MG TABLET PO SCH (11:11)
[2020-05-31] MEDS: METOPROLOL TARTRATE 50MG TABLET PO SCH ×2 (11:11→21:12)
[2020-05-31] MEDS: FAMOTIDINE 20MG/2ML VIAL IV SCH (11:12)
[2020-05-31] MEDS: THIAMINE HCL 100MG TABLET PO SCH (11:12)
[2020-05-31] MEDS: DOCUSATE SODIUM SUGAR FREE 100MG/10ML UDC NG SCH (11:12)
[2020-05-31] MEDS: ENALAPRIL 1.25MG/ML VIAL 1ML IV PRN (11:12)
[2020-05-31] MEDS: HALOPERIDOL LACTATE 5MG/ML VIAL IM PRN (11:13)
[2020-05-31] MEDS: OLANZAPINE 5MG TABLET PO SCH (15:00)
[2020-06-01] VITALS (48 sets, daily range): BP systolic 99–164; BP diastolic 39–113
[2020-06-01] MEDS: HYDRALAZINE HCL 100MG TABLET PO SCH ×4 (00:05→19:03)
[2020-06-01] MEDS: NITROGLYCERIN OINT 1GM/INCH UDPKT TD SCH ×4 (04:04→21:22)
[2020-06-01] MEDS: ACETAMINOPHEN 325MG TABLET PO PRN ×3 (04:51→19:04)
[2020-06-01 05:12] LABS: HEMATOCRIT 29.9 % (42.0-52.0); HEMOGLOBIN 9.9 g/dL (14.0-18.0); MEAN CORPUSCULAR VOLUME 90.7 fL (80.0-94.0); PLATELET 62 x1000/uL (130-400); RED CELL DISTRIBUTION WIDTH 15.4 % (11.6-14.6)
[2020-06-01 05:18] LABS: CHLORIDE 117 mEq/L (98-107)
[2020-06-01] MEDS: BLOOD SUGAR DIAGNOSTIC STRIP TEST SCH ×4 (06:39→21:22)
[2020-06-01] MEDS: INSULIN LISPRO 100 UNITS/ML SUBCUT SCH ×4 (06:42→21:25)
[2020-06-01] MEDS: LEVETIRACETAM 500MG PREMIX 100 ML IV SCH ×2 (14:21→21:21)
[2020-06-01] MEDS: THIAMINE HCL 100MG TABLET PO SCH (14:46)
[2020-06-01] MEDS: FOLIC ACID 1MG TABLET PO SCH (14:47)
[2020-06-01] MEDS: OLANZAPINE 5MG TABLET PO SCH (14:47)
[2020-06-01] MEDS: METOPROLOL TARTRATE 50MG TABLET PO SCH ×2 (14:48→21:21)
[2020-06-01] MEDS: AMLODIPINE 5MG TABLET PO SCH ×2 (14:48→19:05)
[2020-06-01] MEDS: ENALAPRIL 1.25MG/ML VIAL 1ML IV PRN (14:49)
[2020-06-01] MEDS: FAMOTIDINE 20MG/2ML VIAL IV SCH (14:50)
[2020-06-01] MEDS: HALOPERIDOL LACTATE 5MG/ML VIAL IM PRN (14:50)
[2020-06-01 15:33] LABS: BG BASE EXCESS 0.4 mmol/L (-2.0-2.0); BG CARBOXYHEMOGLOBIN 0.3 % (0.5-1.5); BG DEOXYHEMOGLOBIN 5.8 % (0.0-5.0); BG FRACTION INSPIRED OXYGEN 21; BG HCO3 ACT 23.2 mmol/L (22.0-26.0); BG METHEMOGLOBIN 0.4 % (0.0-1.5); BG OXYGEN SATURATION 94.2 % (92.0-98.5); BG OXYHEMOGLOBIN 93.5 % (94.0-97.0); BG PCO2 31.4 mmHg (35.0-45.0); BG PH 7.487 (7.350-7.450); BG PO2 65.2 mmHg (75.0-100.0); BG SAMPLE SITE LEFT RADIAL; BG TOTAL HEMOGLOBIN 10.6 g/dL (12.0-18.0); BG VENT MODE ROOM AIR
[2020-06-02] VITALS (45 sets, daily range): BP systolic 103–154; BP diastolic 43–121
[2020-06-02] MEDS: ACETAMINOPHEN 325MG TABLET PO PRN ×2 (00:02→04:41)
[2020-06-02] MEDS: HYDRALAZINE HCL 100MG TABLET PO SCH ×4 (00:02→19:53)
[2020-06-02] MEDS: NITROGLYCERIN OINT 1GM/INCH UDPKT TD SCH ×4 (04:40→21:53)
[2020-06-02] MEDS: BLOOD SUGAR DIAGNOSTIC STRIP TEST SCH ×4 (06:12→20:29)
[2020-06-02] MEDS: INSULIN LISPRO 100 UNITS/ML SUBCUT SCH ×4 (06:13→20:32)
[2020-06-02] MEDS: ENALAPRIL 1.25MG/ML VIAL 1ML IV PRN (06:38)
[2020-06-02] MEDS: OLANZAPINE 5MG TABLET PO SCH (08:25)
[2020-06-02] MEDS: THIAMINE HCL 100MG TABLET PO SCH (08:25)
[2020-06-02] MEDS: FAMOTIDINE 20MG/2ML VIAL IV SCH (08:25)
[2020-06-02] MEDS: METOPROLOL TARTRATE 50MG TABLET PO SCH ×2 (08:26→20:25)
[2020-06-02] MEDS: FOLIC ACID 1MG TABLET PO SCH (08:26)
[2020-06-02] MEDS: AMLODIPINE 5MG TABLET PO SCH ×2 (08:26→16:47)
[2020-06-02] MEDS: LEVETIRACETAM 500MG PREMIX 100 ML IV SCH ×2 (08:27→20:15)
[2020-06-02] MEDS: PIPERACILLIN/TAZOBACTAM 3.375 G in DEXT 5% WATER 100 ML IV SCH ×2 (14:28→17:00)
[2020-06-02] MEDS: LABETALOL 5MG/ML SYR 20 MG/4 ML SYRINGE IV PRN (16:58)
[2020-06-03] VITALS (10 sets, daily range): BP systolic 115–159; BP diastolic 51–74
[2020-06-03] MEDS: PIPERACILLIN/TAZOBACTAM 3.375 G in DEXT 5% WATER 100 ML IV SCH ×4 (00:24→18:23)
[2020-06-03] MEDS: IPRATROPIUM/ALBUTEROL 0.5-3(2.5)MG/3ML NEB HHN SCH ×4 (02:00→20:10)
[2020-06-03] MEDS: HYDRALAZINE HCL 100MG TABLET PO SCH ×3 (04:28→21:01)
[2020-06-03] MEDS: NITROGLYCERIN OINT 1GM/INCH UDPKT TD SCH ×3 (04:28→17:28)
[2020-06-03 06:04] LABS: HEMATOCRIT 26.5 % (42.0-52.0); HEMOGLOBIN 8.7 g/dL (14.0-18.0); MEAN CORPUSCULAR HEMOGLOBIN 29.9 pg (28.0-32.0); MEAN CORPUSCULAR VOLUME 91.5 fL (80.0-94.0); PLATELET 127 x1000/uL (130-400); RED CELL DISTRIBUTION WIDTH 15.7 % (11.6-14.6)
[2020-06-03 06:10] LABS: CHLORIDE 115 mEq/L (98-107)
[2020-06-03] MEDS: BLOOD SUGAR DIAGNOSTIC STRIP TEST SCH ×4 (07:48→21:02)
[2020-06-03] MEDS: THIAMINE HCL 100MG TABLET PO SCH (08:39)
[2020-06-03] MEDS: FOLIC ACID 1MG TABLET PO SCH (08:39)
[2020-06-03] MEDS: OLANZAPINE 5MG TABLET PO SCH (08:39)
[2020-06-03] MEDS: AMLODIPINE 5MG TABLET PO SCH ×2 (08:39→17:28)
[2020-06-03] MEDS: METOPROLOL TARTRATE 50MG TABLET PO SCH ×2 (08:39→21:02)
[2020-06-03] MEDS: FAMOTIDINE 20MG/2ML VIAL IV SCH (08:40)
[2020-06-03] MEDS: INSULIN LISPRO 100 UNITS/ML SUBCUT SCH ×4 (08:41→20:59)
[2020-06-03] MEDS: LEVETIRACETAM 500MG PREMIX 100 ML IV SCH ×2 (09:36→20:58)
[2020-06-04] VITALS (12 sets, daily range): BP systolic 119–144; BP diastolic 42–99
[2020-06-04] MEDS: PIPERACILLIN/TAZOBACTAM 3.375 G in DEXT 5% WATER 100 ML IV SCH ×4 (00:04→17:47)
[2020-06-04] MEDS: NITROGLYCERIN OINT 1GM/INCH UDPKT TD SCH ×5 (00:04→21:05)
[2020-06-04] MEDS: IPRATROPIUM/ALBUTEROL 0.5-3(2.5)MG/3ML NEB HHN SCH ×4 (01:30→21:30)
[2020-06-04] MEDS: ACETAMINOPHEN 325MG TABLET PO PRN (04:19)
[2020-06-04] MEDS: HYDRALAZINE HCL 100MG TABLET PO SCH ×3 (04:19→20:40)
[2020-06-04] MEDS: BLOOD SUGAR DIAGNOSTIC STRIP TEST SCH ×4 (05:57→20:40)
[2020-06-04 06:57] LABS: PROTHROMBIN TIME 10.5 sec (9.6-11.0)
[2020-06-04] MEDS: INSULIN LISPRO 100 UNITS/ML SUBCUT SCH ×4 (06:59→21:04)
[2020-06-04 07:04] LABS: HEMATOCRIT 24.7 % (42.0-52.0); HEMOGLOBIN 8.1 g/dL (14.0-18.0); MEAN CORPUSCULAR HEMOGLOBIN 30.2 pg (28.0-32.0); MEAN CORPUSCULAR VOLUME 92.3 fL (80.0-94.0); PLATELET 149 x1000/uL (130-400); RED BLOOD CELL COUNT 2.68 mill/uL (4.7-6.1); RED CELL DISTRIBUTION WIDTH 15.8 % (11.6-14.6)
[2020-06-04] MEDS: THIAMINE HCL 100MG TABLET PO SCH (08:25)
[2020-06-04] MEDS: OLANZAPINE 5MG TABLET PO SCH (08:25)
[2020-06-04] MEDS: METOPROLOL TARTRATE 50MG TABLET PO SCH ×2 (08:25→20:40)
[2020-06-04] MEDS: AMLODIPINE 5MG TABLET PO SCH ×2 (08:26→17:49)
[2020-06-04] MEDS: FOLIC ACID 1MG TABLET PO SCH (08:26)
[2020-06-04] MEDS: FAMOTIDINE 20MG/2ML VIAL IV SCH (08:26)
[2020-06-04] MEDS: LEVETIRACETAM 500MG PREMIX 100 ML IV SCH ×2 (08:26→20:39)
[2020-06-04 11:31] LABS: TOTAL IRON BINDING CAPACITY 123 ug/dL (250-450)
[2020-06-04] MEDS: PANTOPRAZOLE SODIUM 40 MG/VIAL IV SCH (20:39)
[2020-06-05] VITALS (11 sets, daily range): BP systolic 107–155; BP diastolic 54–89
[2020-06-05] MEDS: SODIUM CHLORIDE 0.45% 1,000 ML IV SCH ×2 (00:13→20:04)
[2020-06-05] MEDS: PIPERACILLIN/TAZOBACTAM 3.375 G in DEXT 5% WATER 100 ML IV SCH ×4 (00:13→17:09)
[2020-06-05] MEDS: ENALAPRIL 1.25MG/ML VIAL 1ML IV PRN (02:24)
[2020-06-05] MEDS: IPRATROPIUM/ALBUTEROL 0.5-3(2.5)MG/3ML NEB HHN SCH ×4 (02:48→19:53)
[2020-06-05] MEDS: HYDRALAZINE HCL 100MG TABLET PO SCH ×3 (04:00→20:04)
[2020-06-05] MEDS: NITROGLYCERIN OINT 1GM/INCH UDPKT TD SCH ×4 (05:27→22:40)
[2020-06-05] MEDS: BLOOD SUGAR DIAGNOSTIC STRIP TEST SCH ×4 (06:17→20:55)
[2020-06-05 06:36] LABS: CHLORIDE 113 mEq/L (98-107)
[2020-06-05] MEDS: FOLIC ACID 1MG TABLET PO SCH (07:37)
[2020-06-05] MEDS: AMLODIPINE 5MG TABLET PO SCH ×2 (07:37→17:09)
[2020-06-05] MEDS: THIAMINE HCL 100MG TABLET PO SCH (07:37)
[2020-06-05] MEDS: METOPROLOL TARTRATE 50MG TABLET PO SCH ×2 (07:37→20:55)
[2020-06-05] MEDS: OLANZAPINE 5MG TABLET PO SCH (07:38)
[2020-06-05 08:28] LABS: BASOPHILS % 0.8 % (0.0-2.0); EOSINOPHILS % 0.6 % (0.0-5.0); HEMATOCRIT. 26.5 % (42.0-52.0); HEMOGLOBIN. 8.6 g/dL (14.0-18.0); LYMPHOCYTES % 7.5 % (20.0-50.0); MEAN CORPUSCULAR HEMOGLOBIN 29.8 pg (28.0-32.0); MEAN CORPUSCULAR VOLUME 91.9 fL (80.0-94.0); MEAN PLATELET VOLUME 10.6 fl (7.4-10.4); MONOCYTES % 9.6 % (2.0-8.0); NEUTROPHILS % 81.5 % (40.0-76.0); PLATELET 110 x1000/uL (130-400); RED BLOOD CELL COUNT 2.88 mill/uL (4.7-6.1); RED CELL DISTRIBUTION WIDTH 15.4 % (11.6-14.6)
[2020-06-05] MEDS: PANTOPRAZOLE SODIUM 40 MG/VIAL IV SCH ×2 (08:48→20:55)
[2020-06-05] MEDS: INSULIN LISPRO 100 UNITS/ML SUBCUT SCH ×4 (08:48→20:56)
[2020-06-05] MEDS: LEVETIRACETAM 500MG PREMIX 100 ML IV SCH ×2 (08:49→20:55)
[2020-06-05 09:42] LABS: PARTIAL THROMBOPLASTIN TIME 29.6 sec (23.4-31.0); PROTHROMBIN TIME 10.5 sec (9.6-11.0)
[2020-06-05] MEDS: HALOPERIDOL LACTATE 5MG/ML VIAL IM PRN (10:11)
[2020-06-05] MEDS ORDERED: FENTANYL CITRATE/PF 50MCG/ML 2ML VIAL IV PRN (12:28)
[2020-06-05] MEDS ORDERED: MIDAZOLAM HCL 5 MG/5 ML VIAL IV PRN (12:28)
[2020-06-05] MEDS ORDERED: FENTANYL CITRATE/PF 50MCG/ML 2ML VIAL ONE (12:28)
[2020-06-05] MEDS ORDERED: MIDAZOLAM HCL 5 MG/5 ML VIAL ONE (12:28)
[2020-06-05] MEDS ORDERED: DIAZEPAM 5 MG/ML 2ML CPJ IV PRN (13:33)
[2020-06-05] MEDS ORDERED: DIAZEPAM 5 MG/ML 2ML CPJ ONE (13:33)
[2020-06-06] VITALS (12 sets, daily range): BP systolic 106–151; BP diastolic 52–109
[2020-06-06] MEDS: PIPERACILLIN/TAZOBACTAM 3.375 G in DEXT 5% WATER 100 ML IV SCH ×5 (00:01→23:19)
[2020-06-06] MEDS: IPRATROPIUM/ALBUTEROL 0.5-3(2.5)MG/3ML NEB HHN SCH ×4 (02:36→21:07)
[2020-06-06] MEDS: HYDRALAZINE HCL 100MG TABLET PO SCH ×3 (04:10→20:43)
[2020-06-06] MEDS: NITROGLYCERIN OINT 1GM/INCH UDPKT TD SCH ×4 (04:10→21:05)
[2020-06-06] MEDS: METOCLOPRAMIDE HCL 10MG/2ML VIAL IV SCH ×4 (05:54→23:19)
[2020-06-06] MEDS: BLOOD SUGAR DIAGNOSTIC STRIP TEST SCH ×5 (05:55→21:11)
[2020-06-06 06:58] LABS: BASOPHILS % 0.3 % (0.0-2.0); EOSINOPHILS % 0.8 % (0.0-5.0); HEMATOCRIT. 23.1 % (42.0-52.0); HEMOGLOBIN. 7.7 g/dL (14.0-18.0); MEAN CORPUSCULAR HEMOGLOBIN 30.5 pg (28.0-32.0); MEAN CORPUSCULAR VOLUME 91.1 fL (80.0-94.0); MEAN PLATELET VOLUME 9.8 fl (7.4-10.4); MONOCYTES % 10.8 % (2.0-8.0); NEUTROPHILS % 80.1 % (40.0-76.0); PLATELET 139 x1000/uL (130-400); RED BLOOD CELL COUNT 2.54 mill/uL (4.7-6.1)
[2020-06-06] MEDS: INSULIN LISPRO 100 UNITS/ML SUBCUT SCH ×4 (07:20→21:26)
[2020-06-06] MEDS: METOPROLOL TARTRATE 50MG TABLET PO SCH ×2 (09:07→20:44)
[2020-06-06] MEDS: OLANZAPINE 5MG TABLET PO SCH (09:08)
[2020-06-06] MEDS: AMLODIPINE 5MG TABLET PO SCH ×2 (09:08→17:09)
[2020-06-06] MEDS: THIAMINE HCL 100MG TABLET PO SCH (09:08)
[2020-06-06] MEDS: FOLIC ACID 1MG TABLET PO SCH (09:08)
[2020-06-06] MEDS: LEVETIRACETAM 500MG PREMIX 100 ML IV SCH ×2 (09:09→21:23)
[2020-06-06] MEDS: PANTOPRAZOLE SODIUM 40 MG/VIAL IV SCH ×2 (09:09→20:43)
[2020-06-06] MEDS: HALOPERIDOL LACTATE 5MG/ML VIAL IM PRN ×2 (10:56→23:21)
[2020-06-06] MEDS: SODIUM CHLORIDE 0.45% 1,000 ML IV SCH (17:09)
[2020-06-06] MEDS: ACETAMINOPHEN 325MG TABLET PO PRN (20:44)
[2020-06-07] VITALS (12 sets, daily range): BP systolic 108–189; BP diastolic 55–146
[2020-06-07] MEDS: IPRATROPIUM/ALBUTEROL 0.5-3(2.5)MG/3ML NEB HHN SCH ×4 (02:39→21:08)
[2020-06-07] MEDS: NITROGLYCERIN OINT 1GM/INCH UDPKT TD SCH ×4 (05:21→22:53)
[2020-06-07] MEDS: CLONIDINE 0.1MG TABLET PO PRN (05:21)
[2020-06-07] MEDS: PIPERACILLIN/TAZOBACTAM 3.375 G in DEXT 5% WATER 100 ML IV SCH ×2 (05:22→12:40)
[2020-06-07] MEDS: HYDRALAZINE HCL 100MG TABLET PO SCH ×3 (05:22→20:00)
[2020-06-07] MEDS: METOCLOPRAMIDE HCL 10MG/2ML VIAL IV SCH ×3 (05:22→18:25)
[2020-06-07] MEDS: INSULIN LISPRO 100 UNITS/ML SUBCUT SCH ×4 (06:33→20:32)
[2020-06-07] MEDS: BLOOD SUGAR DIAGNOSTIC STRIP TEST SCH ×4 (06:34→20:20)
[2020-06-07] MEDS: LEVETIRACETAM 500MG PREMIX 100 ML IV SCH (09:04)
[2020-06-07] MEDS: PANTOPRAZOLE SODIUM 40 MG/VIAL IV SCH ×2 (09:04→20:18)
[2020-06-07] MEDS: METOPROLOL TARTRATE 50MG TABLET PO SCH ×2 (09:05→20:19)
[2020-06-07] MEDS: FOLIC ACID 1MG TABLET PO SCH (09:05)
[2020-06-07] MEDS: THIAMINE HCL 100MG TABLET PO SCH (09:05)
[2020-06-07] MEDS: OLANZAPINE 5MG TABLET PO SCH (09:05)
[2020-06-07] MEDS: AMLODIPINE 5MG TABLET PO SCH ×2 (09:05→17:11)
[2020-06-07] MEDS: SODIUM CHLORIDE 0.45% 1,000 ML IV SCH (12:40)
[2020-06-07] MEDS: LEVETIRACETAM 500MG/5ML CUP PEG SCH (20:19)
[2020-06-08] VITALS (12 sets, daily range): BP systolic 104–174; BP diastolic 53–85
[2020-06-08] MEDS: METOCLOPRAMIDE HCL 10MG/2ML VIAL IV SCH
[2020-06-08] MEDS: IPRATROPIUM/ALBUTEROL 0.5-3(2.5)MG/3ML NEB HHN SCH ×4 (01:36→21:04)
[2020-06-08] MEDS: HYDRALAZINE HCL 100MG TABLET PO SCH ×3 (04:38→21:11)
[2020-06-08] MEDS: NITROGLYCERIN OINT 1GM/INCH UDPKT TD SCH ×4 (04:39→21:12)
[2020-06-08] MEDS: BLOOD SUGAR DIAGNOSTIC STRIP TEST SCH ×4 (06:50→21:12)
[2020-06-08 08:27] LABS: BG BASE EXCESS -2.3 mmol/L (-2.0-2.0); BG CARBOXYHEMOGLOBIN 0.3 % (0.5-1.5); BG DEOXYHEMOGLOBIN 24.9 % (0.0-5.0); BG HCO3 ACT 21.8 mmol/L (22.0-26.0); BG OXYHEMOGLOBIN 74.8 % (94.0-97.0); BG PCO2 34.1 mmHg (35.0-45.0); BG PH 7.423 (7.350-7.450); BG PO2 41.2 mmHg (75.0-100.0); BG SAMPLE SITE LEFT RADIAL; BG TOTAL HEMOGLOBIN 7.9 g/dL (12.0-18.0); BG VENT MODE NASAL CANNULA
[2020-06-08] MEDS: LEVETIRACETAM 500MG/5ML CUP PEG SCH ×2 (09:50→21:10)
[2020-06-08] MEDS: PANTOPRAZOLE SODIUM 40 MG/VIAL IV SCH ×2 (09:50→21:10)
[2020-06-08] MEDS: SODIUM CHLORIDE 0.45% 1,000 ML IV SCH ×2 (09:50→14:56)
[2020-06-08] MEDS: FOLIC ACID 1MG TABLET PO SCH (09:51)
[2020-06-08] MEDS: THIAMINE HCL 100MG TABLET PO SCH (09:51)
[2020-06-08] MEDS: METOPROLOL TARTRATE 50MG TABLET PO SCH ×2 (09:51→21:11)
[2020-06-08] MEDS: OLANZAPINE 5MG TABLET PO SCH (09:51)
[2020-06-08] MEDS: AMLODIPINE 5MG TABLET PO SCH ×2 (09:51→17:19)
[2020-06-08] MEDS: INSULIN LISPRO 100 UNITS/ML SUBCUT SCH ×4 (09:52→21:12)
[2020-06-08 10:12] LABS: BASOPHILS % 0.2 % (0.0-2.0); EOSINOPHILS % 0.7 % (0.0-5.0); HEMATOCRIT. 22.3 % (42.0-52.0); HEMOGLOBIN. 7.3 g/dL (14.0-18.0); LYMPHOCYTES % 8.7 % (20.0-50.0); MEAN CORPUSCULAR HEMOGLOBIN 30.3 pg (28.0-32.0); MEAN PLATELET VOLUME 9.4 fl (7.4-10.4); MONOCYTES % 8.5 % (2.0-8.0); NEUTROPHILS % 81.9 % (40.0-76.0); PLATELET 156 x1000/uL (130-400); RED BLOOD CELL COUNT 2.42 mill/uL (4.7-6.1); RED CELL DISTRIBUTION WIDTH 15.5 % (11.6-14.6)
[2020-06-08 10:43] LABS: CHLORIDE 111 mEq/L (98-107)
[2020-06-08] MEDS ORDERED: FUROSEMIDE 40MG/4ML VIAL IVP SCH (14:15)
[2020-06-08 14:23] LABS: BG BASE EXCESS -2.3 mmol/L (-2.0-2.0); BG DEOXYHEMOGLOBIN 0.8 % (0.0-5.0); BG FRACTION INSPIRED OXYGEN 99.8; BG HCO3 ACT 22.6 mmol/L (22.0-26.0); BG METHEMOGLOBIN 0.1 % (0.0-1.5); BG OXYGEN SATURATION 99.2 % (92.0-98.5); BG OXYHEMOGLOBIN 99.1 % (94.0-97.0); BG PH 7.381 (7.350-7.450); BG PO2 229.2 mmHg (75.0-100.0); BG SAMPLE SITE LEFT RADIAL; BG TOTAL HEMOGLOBIN 8.7 g/dL (12.0-18.0); BG VENT MODE MASK - NRB
[2020-06-08] MEDS ORDERED: FUROSEMIDE 40MG/4ML VIAL ONE (14:25)
[2020-06-09] VITALS (12 sets, daily range): BP systolic 129–152; BP diastolic 61–92
[2020-06-09] MEDS: IPRATROPIUM/ALBUTEROL 0.5-3(2.5)MG/3ML NEB HHN SCH ×4 (01:00→20:57)
[2020-06-09] MEDS: HALOPERIDOL LACTATE 5MG/ML VIAL IM PRN ×2 (03:44→11:44)
[2020-06-09 04:55] LABS: BG BASE EXCESS -2.8 mmol/L (-2.0-2.0); BG CARBOXYHEMOGLOBIN 0.3 % (0.5-1.5); BG DEOXYHEMOGLOBIN 11.3 % (0.0-5.0); BG FRACTION INSPIRED OXYGEN 40; BG HCO3 ACT 20.8 mmol/L (22.0-26.0); BG METHEMOGLOBIN 0.3 % (0.0-1.5); BG OXYGEN SATURATION 88.6 % (92.0-98.5); BG OXYHEMOGLOBIN 88.1 % (94.0-97.0); BG PCO2 31.3 mmHg (35.0-45.0); BG PO2 54.7 mmHg (75.0-100.0); BG TOTAL HEMOGLOBIN 9.4 g/dL (12.0-18.0); BG VENT MODE NASAL CANNULA
[2020-06-09] MEDS: NITROGLYCERIN OINT 1GM/INCH UDPKT TD SCH ×4 (04:55→23:13)
[2020-06-09] MEDS: HYDRALAZINE HCL 100MG TABLET PO SCH ×3 (04:55→21:06)
[2020-06-09] MEDS: BLOOD SUGAR DIAGNOSTIC STRIP TEST SCH ×4 (06:08→21:07)
[2020-06-09 06:33] LABS: HEMATOCRIT. 23.9 % (42.0-52.0); HEMOGLOBIN. 7.7 g/dL (14.0-18.0); MEAN CORPUSCULAR HEMOGLOBIN 29.6 pg (28.0-32.0); MEAN CORPUSCULAR VOLUME 91.4 fL (80.0-94.0); MEAN PLATELET VOLUME 9.2 fl (7.4-10.4); PLATELET 191 x1000/uL (130-400); RED BLOOD CELL COUNT 2.61 mill/uL (4.7-6.1); RED CELL DISTRIBUTION WIDTH 15.5 % (11.6-14.6)
[2020-06-09 06:34] LABS: CHLORIDE 111 mEq/L (98-107)
[2020-06-09] MEDS: LEVETIRACETAM 500MG/5ML CUP PEG SCH ×2 (09:26→21:07)
[2020-06-09] MEDS: PANTOPRAZOLE SODIUM 40 MG/VIAL IV SCH ×2 (09:26→21:07)
[2020-06-09] MEDS: METOPROLOL TARTRATE 50MG TABLET PO SCH ×2 (09:27→21:07)
[2020-06-09] MEDS: THIAMINE HCL 100MG TABLET PO SCH (09:27)
[2020-06-09] MEDS: OLANZAPINE 5MG TABLET PO SCH (09:27)
[2020-06-09] MEDS: FOLIC ACID 1MG TABLET PO SCH (09:27)
[2020-06-09] MEDS: AMLODIPINE 5MG TABLET PO SCH ×2 (09:28→17:35)
[2020-06-09] MEDS: INSULIN LISPRO 100 UNITS/ML SUBCUT SCH ×4 (09:28→21:09)
[2020-06-09 09:50] LABS: BG BASE EXCESS 1.1 mmol/L (-2.0-2.0); BG CARBOXYHEMOGLOBIN 0.4 % (0.5-1.5); BG DEOXYHEMOGLOBIN 2.2 % (0.0-5.0); BG FRACTION INSPIRED OXYGEN 100; BG HCO3 ACT 25.3 mmol/L (22.0-26.0); BG METHEMOGLOBIN 0.3 % (0.0-1.5); BG OXYGEN SATURATION 97.8 % (92.0-98.5); BG OXYHEMOGLOBIN 97.1 % (94.0-97.0); BG PCO2 38.4 mmHg (35.0-45.0); BG PH 7.437 (7.350-7.450); BG PO2 103.9 mmHg (75.0-100.0); BG SAMPLE SITE LEFT RADIAL; BG TOTAL HEMOGLOBIN 7.9 g/dL (12.0-18.0); BG VENT MODE MASK - NRB
[2020-06-09 14:12] LABS: PLATELET ESTIMATE NORMAL
[2020-06-09] MEDS: SODIUM CHLORIDE 0.45% 1,000 ML IV SCH (14:58)
[2020-06-10] VITALS (12 sets, daily range): BP systolic 120–157; BP diastolic 62–99
[2020-06-10] MEDS: IPRATROPIUM/ALBUTEROL 0.5-3(2.5)MG/3ML NEB HHN SCH ×4 (01:42→20:54)
[2020-06-10] MEDS: HALOPERIDOL LACTATE 5MG/ML VIAL IM PRN (02:25)
[2020-06-10] MEDS: HYDRALAZINE HCL 100MG TABLET PO SCH ×3 (04:10→20:23)
[2020-06-10] MEDS: NITROGLYCERIN OINT 1GM/INCH UDPKT TD SCH ×4 (04:11→22:49)
[2020-06-10] MEDS: INSULIN LISPRO 100 UNITS/ML SUBCUT SCH ×4 (06:33→20:52)
[2020-06-10] MEDS: BLOOD SUGAR DIAGNOSTIC STRIP TEST SCH ×4 (06:33→20:42)
[2020-06-10] MEDS: LEVETIRACETAM 500MG/5ML CUP PEG SCH ×2 (09:46→20:24)
[2020-06-10] MEDS: PANTOPRAZOLE SODIUM 40 MG/VIAL IV SCH ×2 (09:47→20:24)
[2020-06-10] MEDS: OLANZAPINE 5MG TABLET PO SCH (09:47)
[2020-06-10] MEDS: METOPROLOL TARTRATE 50MG TABLET PO SCH ×2 (09:47→20:23)
[2020-06-10] MEDS: AMLODIPINE 5MG TABLET PO SCH ×2 (09:47→17:09)
[2020-06-10] MEDS: FOLIC ACID 1MG TABLET PO SCH (09:47)
[2020-06-10] MEDS: THIAMINE HCL 100MG TABLET PO SCH (09:47)
[2020-06-10] MEDS: SODIUM CHLORIDE 0.45% 1,000 ML IV SCH (14:46)
[2020-06-10 15:37] LABS: HEMATOCRIT. 22.9 % (42.0-52.0); HEMOGLOBIN. 7.5 g/dL (14.0-18.0); MEAN CORPUSCULAR HEMOGLOBIN 29.7 pg (28.0-32.0); MEAN CORPUSCULAR VOLUME 91.2 fL (80.0-94.0); PLATELET 207 x1000/uL (130-400); RED BLOOD CELL COUNT 2.51 mill/uL (4.7-6.1); RED CELL DISTRIBUTION WIDTH 15.5 % (11.6-14.6)
[2020-06-10 15:50] LABS: CHLORIDE 111 mEq/L (98-107)
[2020-06-10 16:45] LABS: PLATELET ESTIMATE NORMAL
[2020-06-11] VITALS (16 sets, daily range): BP systolic 109–146; BP diastolic 55–90
[2020-06-11] MEDS: IPRATROPIUM/ALBUTEROL 0.5-3(2.5)MG/3ML NEB HHN SCH ×4 (01:09→21:13)
[2020-06-11] MEDS: HYDRALAZINE HCL 100MG TABLET PO SCH ×3 (04:00→20:00)
[2020-06-11] MEDS: NITROGLYCERIN OINT 1GM/INCH UDPKT TD SCH ×4 (04:01→21:57)
[2020-06-11] MEDS: BLOOD SUGAR DIAGNOSTIC STRIP TEST SCH ×4 (06:05→21:00)
[2020-06-11] MEDS: INSULIN LISPRO 100 UNITS/ML SUBCUT SCH ×4 (06:09→21:00)
[2020-06-11] MEDS: METOPROLOL TARTRATE 50MG TABLET PO SCH ×2 (08:39→21:00)
[2020-06-11] MEDS: THIAMINE HCL 100MG TABLET PO SCH (08:39)
[2020-06-11] MEDS: LEVETIRACETAM 500MG/5ML CUP PEG SCH ×2 (08:39→21:56)
[2020-06-11] MEDS: AMLODIPINE 5MG TABLET PO SCH ×2 (08:39→17:19)
[2020-06-11] MEDS: PANTOPRAZOLE SODIUM 40 MG/VIAL IV SCH ×2 (08:40→21:56)
[2020-06-11] MEDS: FOLIC ACID 1MG TABLET PO SCH (08:40)
[2020-06-11] MEDS ORDERED: OLANZAPINE 5MG TABLET PO SCH (09:00)
[2020-06-11] MEDS ORDERED: ONDANSETRON HCL 4MG/2ML INJ IV SCH (09:30)
[2020-06-11] MEDS: ONDANSETRON HCL 4MG/2ML INJ IV PRN (09:35)
[2020-06-11 09:57] LABS: HEMATOCRIT. 22.8 % (42.0-52.0); HEMOGLOBIN. 7.3 g/dL (14.0-18.0); MEAN CORPUSCULAR HEMOGLOBIN 29.7 pg (28.0-32.0); MEAN CORPUSCULAR VOLUME 92.2 fL (80.0-94.0); MEAN PLATELET VOLUME 9.8 fl (7.4-10.4); PLATELET 211 x1000/uL (130-400); RED BLOOD CELL COUNT 2.47 mill/uL (4.7-6.1); RED CELL DISTRIBUTION WIDTH 15.8 % (11.6-14.6)
[2020-06-11 10:08] LABS: CHLORIDE 112 mEq/L (98-107)
[2020-06-11 10:29] LABS: BG BASE EXCESS -1.5 mmol/L (-2.0-2.0); BG CARBOXYHEMOGLOBIN 0.3 % (0.5-1.5); BG DEOXYHEMOGLOBIN 24.2 % (0.0-5.0); BG FRACTION INSPIRED OXYGEN 32; BG HCO3 ACT 23.5 mmol/L (22.0-26.0); BG METHEMOGLOBIN 0.1 % (0.0-1.5); BG OXYGEN SATURATION 75.7 % (92.0-98.5); BG OXYHEMOGLOBIN 75.4 % (94.0-97.0); BG PCO2 40.8 mmHg (35.0-45.0); BG PH 7.379 (7.350-7.450); BG SAMPLE SITE RIGHT RADIAL; BG TOTAL HEMOGLOBIN 8.2 g/dL (12.0-18.0); BG VENT MODE NASAL CANNULA
[2020-06-11] MEDS ORDERED: FUROSEMIDE 40MG/4ML VIAL IVP NR (12:00)
[2020-06-11 13:05] LABS: PLATELET ESTIMATE NORMAL
[2020-06-11 13:21] LABS: BG BASE EXCESS -1.7 mmol/L (-2.0-2.0); BG CARBOXYHEMOGLOBIN 0.2 % (0.5-1.5); BG DEOXYHEMOGLOBIN 14.6 % (0.0-5.0); BG FRACTION INSPIRED OXYGEN 50; BG HCO3 ACT 23.1 mmol/L (22.0-26.0); BG METHEMOGLOBIN 0.3 % (0.0-1.5); BG OXYGEN SATURATION 85.3 % (92.0-98.5); BG OXYHEMOGLOBIN 84.9 % (94.0-97.0); BG PCO2 39.2 mmHg (35.0-45.0); BG PH 7.389 (7.350-7.450); BG SAMPLE SITE LEFT RADIAL; BG TOTAL HEMOGLOBIN 7.7 g/dL (12.0-18.0); BG VENT MODE MASK - VENTI
[2020-06-11] MEDS: PIPERACILLIN/TAZOBACTAM 3.375 G in DEXT 5% WATER 100 ML IV SCH ×2 (14:25→21:58)
[2020-06-11] MEDS ORDERED: VANCOMYCIN 1500MG in DEXTROSE 5% WATER 250ML IV NR (16:00)
[2020-06-11 18:40] LABS: HEMATOCRIT 21.3 % (42.0-52.0); MEAN CORPUSCULAR VOLUME 91.8 fL (80.0-94.0); PLATELET 204 x1000/uL (130-400); RED BLOOD CELL COUNT 2.32 mill/uL (4.7-6.1); RED CELL DISTRIBUTION WIDTH 15.7 % (11.6-14.6)
[2020-06-11] MEDS: FUROSEMIDE 40MG TABLET PO SCH (21:57)
[2020-06-12] VITALS (12 sets, daily range): BP systolic 115–155; BP diastolic 61–86
[2020-06-12] MEDS: IPRATROPIUM/ALBUTEROL 0.5-3(2.5)MG/3ML NEB HHN SCH ×4 (02:17→20:04)
[2020-06-12] MEDS: PIPERACILLIN/TAZOBACTAM 3.375 G in DEXT 5% WATER 100 ML IV SCH ×3 (03:06→18:15)
[2020-06-12] MEDS: HYDRALAZINE HCL 100MG TABLET PO SCH ×2 (04:39→13:24)
[2020-06-12] MEDS: NITROGLYCERIN OINT 1GM/INCH UDPKT TD SCH ×3 (04:39→18:16)
[2020-06-12] MEDS: BLOOD SUGAR DIAGNOSTIC STRIP TEST SCH ×3 (06:15→16:50)
[2020-06-12 06:58] LABS: HEMATOCRIT. 24.9 % (42.0-52.0); HEMOGLOBIN. 8.1 g/dL (14.0-18.0); MEAN CORPUSCULAR HEMOGLOBIN 28.7 pg (28.0-32.0); MEAN CORPUSCULAR VOLUME 87.7 fL (80.0-94.0); MEAN PLATELET VOLUME 9.4 fl (7.4-10.4); PLATELET 209 x1000/uL (130-400); RED BLOOD CELL COUNT 2.84 mill/uL (4.7-6.1); RED CELL DISTRIBUTION WIDTH 18.5 % (11.6-14.6)
[2020-06-12] MEDS: INSULIN LISPRO 100 UNITS/ML SUBCUT SCH ×3 (07:20→17:20)
[2020-06-12 08:53] LABS: BG BASE EXCESS 0.9 mmol/L (-2.0-2.0); BG CARBOXYHEMOGLOBIN 0.3 % (0.5-1.5); BG DEOXYHEMOGLOBIN 5.3 % (0.0-5.0); BG FRACTION INSPIRED OXYGEN 100; BG HCO3 ACT 26.3 mmol/L (22.0-26.0); BG METHEMOGLOBIN 0.1 % (0.0-1.5); BG OXYGEN SATURATION 94.7 % (92.0-98.5); BG OXYHEMOGLOBIN 94.3 % (94.0-97.0); BG PCO2 45.8 mmHg (35.0-45.0); BG PH 7.377 (7.350-7.450); BG PO2 74.8 mmHg (75.0-100.0); BG SAMPLE SITE RIGHT RADIAL; BG TOTAL HEMOGLOBIN 8.9 g/dL (12.0-18.0); BG VENT MODE MASK - NRB
[2020-06-12] MEDS: THIAMINE HCL 100MG TABLET PO SCH (09:58)
[2020-06-12] MEDS: LEVETIRACETAM 500MG/5ML CUP PEG SCH (09:58)
[2020-06-12] MEDS: FOLIC ACID 1MG TABLET PO SCH (09:59)
[2020-06-12] MEDS: AMLODIPINE 5MG TABLET PO SCH ×2 (09:59→18:15)
[2020-06-12] MEDS: PANTOPRAZOLE SODIUM 40 MG/VIAL IV SCH (09:59)
[2020-06-12] MEDS: METOPROLOL TARTRATE 50MG TABLET PO SCH (10:00)
[2020-06-12] MEDS: FUROSEMIDE 40MG TABLET PO SCH ×2 (10:00→18:15)
[2020-06-12] MEDS ORDERED: VANCOMYCIN 1250MG in DEXTROSE 5% WATER 250ML IV SCH (12:00)
[2020-06-12 12:55] LABS: PLATELET ESTIMATE NORMAL
[2020-06-12] MEDS ORDERED: FUROSEMIDE 100MG/10ML VIAL IVP NR (13:30)
[2020-06-13] MEDS ORDERED: VANCOMYCIN 1250MG in DEXTROSE 5% WATER 250ML IV SCH (10:00)
== END 2020-06-12 21:22 | DRG 25 ==
LOC: ER 19:57 → ENRESERV 23:53 → MICUNO 05-21 00:55 → 3WST 06-02 22:04
PROVIDERS: ADMIT Ophthalmology; ATTEND Ophthalmology
PROC: 0DB68ZX Excision of Stomach, Via Natural or Artificial Opening Endoscopic, Diagnostic (ICD-10-PCS; 2020-05-26)
PROC: 00C40ZZ Extirpation of Matter from Intracranial Subdural Space, Open Approach (ICD-10-PCS; principal; 2020-06-12)
PROC: 06H03DZ Insertion of Intraluminal Device into Inferior Vena Cava, Percutaneous Approach (ICD-10-PCS; 2020-06-12)
PROC: 00U207Z Supplement Dura Mater with Autologous Tissue Substitute, Open Approach (ICD-10-PCS; 2020-06-12)
PROC: 00H002Z Insertion of Monitoring Device into Brain, Open Approach (ICD-10-PCS; 2020-06-12)
PROC: 0DH63UZ Insertion of Feeding Device into Stomach, Percutaneous Approach (ICD-10-PCS; 2020-06-12)
PROC: 3E0G76Z Introduction of Nutritional Substance into Upper GI, Via Natural or Artificial Opening (ICD-10-PCS; 2020-06-12)
PROC: 4A103BD Monitoring of Intracranial Pressure, Percutaneous Approach (ICD-10-PCS; 2020-06-12)
DX: S06.5X9A Traumatic subdural hemorrhage with loss of consciousness of unspecified duration, initial encounter (principal); I50.33 Acute on chronic diastolic (congestive) heart failure; J96.01 Acute respiratory failure with hypoxia; G93.40 Encephalopathy, unspecified; N17.9 Acute kidney failure, unspecified; I82.411 Acute embolism and thrombosis of right femoral vein; E86.0 Dehydration; D64.9 Anemia, unspecified; E11.65 Type 2 diabetes mellitus with hyperglycemia; I11.0 Hypertensive heart disease with heart failure; I27.20 Pulmonary hypertension, unspecified; I71.9 Aortic aneurysm of unspecified site, without rupture; R13.10 Dysphagia, unspecified; K29.70 Gastritis, unspecified, without bleeding; D69.6 Thrombocytopenia, unspecified; E88.09 Other disorders of plasma-protein metabolism, not elsewhere classified; S01.111A Laceration without foreign body of right eyelid and periocular area, initial encounter; Z20.828 Contact with and (suspected) exposure to other viral communicable diseases; F03.90 Unspecified dementia, unspecified severity, without behavioral disturbance, psychotic disturbance, mood disturbance, and anxiety; R62.7 Adult failure to thrive; Y04.0XXA Assault by unarmed brawl or fight, initial encounter; Z78.1 Physical restraint status; Z86.718 Personal history of other venous thrombosis and embolism; Z95.828 Presence of other vascular implants and grafts; Z68.25 Body mass index [BMI] 25.0-25.9, adult; Z79.84 Long term (current) use of oral hypoglycemic drugs; Z87.820 Personal history of traumatic brain injury; Y93.89 Activity, other specified; Y92.89 Other specified places as the place of occurrence of the external cause; Y99.8 Other external cause status; Z79.899 Other long term (current) drug therapy
CPT/HCPCS: 36415; 36600; 37191; 70486; 70553; 71045; 71250; 74018; 80048; 80053; 80061; 80076; 80305; 80320; 81003; 82140; 82375; 82805; 82962; 83036; 83540; 83550; 84439; 84443; 85025; 85027; 86850; 86900; 86920; 87070; 87075; 87426; 88304; 88305; 88313; 90715; 92610; 93005; 93306; 93970; 94640; 97162; 97164; 97166; 97168; 97530; 97535; 99152; 99291; A4216; A9577; C1713; C1769; C1880; C9113; J0690; J1100; J1630; J1644; J1815; J1940; J1953; J2060; J2250; J2270; J2370; J2405; J2543; J2704; J2710; J2765; J3010; J3370; J3411; J3490; J7030; J7050; J7060; P9016; Q9967; G0480; G0500; U0003-CS

== ENCOUNTER 2020-08-12 00:03 | Emergency (ER) | payer MEDICARE, MEDICAID ==
[~2020-08-12] VITALS: Ht 182.9 cm; Wt 91.0 kg
[~2020-08-12 00:03] MED LIST: AMLO-78 MT; CARV3.1242 MT; FURO-152 MT; GLIM1TAB MT; QUET25TA MT
[2020-08-12] MEDS ORDERED: NITROGLYCERIN OINT 1GM/INCH UDPKT TD ONE (00:45)
[2020-08-12] MEDS ORDERED: ASPIRIN 81MG TABLET PO ONE (00:45)
[2020-08-12 02:11] LABS: BASOPHILS % 0.3 % (0.0-2.0); EOSINOPHILS % 1.3 % (0.0-5.0); HEMATOCRIT. 33.2 % (42.0-52.0); HEMOGLOBIN. 10.9 g/dL (14.0-18.0); LYMPHOCYTES % 13.8 % (20.0-50.0); MEAN CORPUSCULAR HEMOGLOBIN 30.2 pg (28.0-32.0); MEAN CORPUSCULAR VOLUME 92.1 fL (80.0-94.0); MEAN PLATELET VOLUME 9.9 fl (7.4-10.4); MONOCYTES % 14.1 % (2.0-8.0); NEUTROPHILS % 70.5 % (40.0-76.0); PLATELET 135 x1000/uL (130-400); RED CELL DISTRIBUTION WIDTH 16.5 % (11.6-14.6)
[2020-08-12 02:20] LABS: CHLORIDE 111 mEq/L (98-107)
[2020-08-12] MEDS ORDERED: IOHEXOL-300 100 ML BOTTLE ONE (04:18)
[2020-08-12] MEDS ORDERED: ONDANSETRON HCL 4MG/2ML INJ IV PRN (07:00)
[2020-08-12] MEDS ORDERED: ACETAMINOPHEN 325MG TABLET PO PRN (07:00)
[2020-08-12] MEDS ORDERED: DOCUSATE SODIUM 100MG CAPSULE PO PRN (07:00)
[2020-08-12] MEDS ORDERED: GLIMEPIRIDE 1MG TABLET PO SCH (09:00)
[2020-08-12] MEDS ORDERED: FUROSEMIDE 20MG TABLET PO SCH (09:00)
[2020-08-12] MEDS ORDERED: CARVEDILOL 3.125 MG TABLET PO SCH (09:00)
[2020-08-12] MEDS ORDERED: LISINOPRIL 40MG TABLET PO SCH (09:00)
[2020-08-12 15:30] VITALS: BP 154/45
[2020-08-12] MEDS ORDERED: QUETIAPINE FUMARATE 25MG TABLET PO SCH (21:00)
[2020-08-13] MEDS ORDERED: ASPIRIN 81MG TABLET PO SCH (09:00)
== END 2020-08-12 16:35 ==
LOC: ER 00:03 → CANBEDREQ 20:47
DX: I11.0 Hypertensive heart disease with heart failure (principal); I50.9 Heart failure, unspecified; E11.9 Type 2 diabetes mellitus without complications; F03.90 Unspecified dementia, unspecified severity, without behavioral disturbance, psychotic disturbance, mood disturbance, and anxiety; D64.9 Anemia, unspecified; E44.1 Mild protein-calorie malnutrition; E87.8 Other disorders of electrolyte and fluid balance, not elsewhere classified; Z79.899 Other long term (current) drug therapy; Z98.890 Other specified postprocedural states; Z86.718 Personal history of other venous thrombosis and embolism
CPT/HCPCS: 36415; 71045; 71275; 80053; 83880; 84484; 85025; 85379; 93005; 99285; Q9967